=== PATIENT | male | born 1980 | race Caucasian/White ===

== ENCOUNTER 2017-01-29 17:35 | Emergency (ER) | payer BC ==
[2017-01-29 17:57] VITALS: BP 142/103
[2017-01-29] MEDS ORDERED: Acetaminophen/HYDROcodone 325-10 MG Tab PO ONE (18:26)
[2017-01-29] MEDS ORDERED: Take Home: Acetaminophen/Codeine 300 MG/30 MG, 5 Tab Pack PO ONE (18:38)
--- NOTE | 2017-01-29 22:00 | ER ---
Date of Service: 01/29/2017 SUBJECTIVE: Lance presents to the emergency room with complaints of pain to his left lateral leg. The patient states that he had a calf pen door come loose and strike him in the area of the lateral distal upper leg. He states that he was able to bear weight but with increased discomfort. He also does have some discomfort as well to the knee. PAST MEDICAL HISTORY: 1. ADHD. 2. Diabetes mellitus. 3. Depression. 4. Anxiety. 5. Dyslipidemia. 6. Hypertension. 7. History of opiate misuse. MEDICATIONS: 1. Adderall. 2. Farxiga. 3. Lipitor. 4. Metoprolol tartrate. 5. Trulicity. 6. Celexa. ALLERGIES: Metformin. REVIEW OF SYSTEMS: Denies any numbness or tingling distal to the area of injury. Denies any injury other than what is isolated to the left distal thigh area. PHYSICAL EXAMINATION: General: The patient is a 37-year-old male patient, in no acute distress. Vital Signs: Blood pressure is 142/103, pulse rate is 106, temperature is 35.3, respiratory rate 18, O2 saturations 96%. Skin: Warm, pink, and dry. Musculoskeletal: The patient does have tenderness and edema to the lateral aspect of his left thigh area. There is a large hematoma in this area. He has no crepitus noted to the knee. His drawer test is negative. Does have some increased discomfort with varus and valgus manipulation of the lower leg. Neurovascular: Circulation, sensation, and motor function all within normal limits in the distal portion of the extremity. RADIOGRAPHIC DATA: Radiographs of the patient's femur including knee were obtained. There was no evidence of any acute fracture or dislocation. ASSESSMENT: Contusion with hematoma to left distal thigh. PLAN: The patient will be discharged. Tylenol and ibuprofen for discomfort. Cecil wrap was applied. He was given Lortab 5/325 here in the emergency room. Also, did give him a 5-pack of Tylenol No. 3 with instructions to take 1 every 4- 6 hours as needed for pain. He should also take ibuprofen 600 mg every 6 hours, use the Cecil wrap for compression. Return to the emergency room if the pain is unrelenting or follow up in the clinic if things are not gradually improving. All questions were answered. MWK: 01/29/2017 19:39:09 MODL: 01/29/2017 21:51:15 /[id number]
== END 2017-01-29 19:00 | disposition home or self-care (01) ==
LOC: VM.ED 17:35
DX: S70.12XA Contusion of left thigh, initial encounter (principal); E11.9 Type 2 diabetes mellitus without complications; F41.9 Anxiety disorder, unspecified; F32.9 Major depressive disorder, single episode, unspecified; I10 Essential (primary) hypertension; F90.9 Attention-deficit hyperactivity disorder, unspecified type; Z88.8 Allergy status to other drugs, medicaments and biological substances; W22.8XXA Striking against or struck by other objects, initial encounter
CPT/HCPCS: 73552; 99283; A9270

== ENCOUNTER 2020-09-25 16:02 | Emergency (ER) | payer BC ==
[2020-09-25] MEDS ORDERED: Take Home: Sulfamethoxazole/Trimethoprim 800-160 MG Tab, 2 Tab Pack PO ONE (16:22)
[2020-09-25] MEDS ORDERED: Sulfamethoxazole/Trimethoprim 800-160 MG Tab PO ONE (16:23)
--- NOTE | 2020-09-25 23:32 | EDM.PDOC ---
ED HPI GENERAL MEDICAL PROBLEM - General Chief Complaint: Upper Extremity Injury/Pain Stated Complaint: POSSIBLE CELULITIS IN THUMB Time Seen by Provider: 09/25/20 16:15 Source of Information: Reports: Patient History Limitations: Reports: No Limitations - History of Present Illness INITIAL COMMENTS - FREE TEXT/NARRATIVE: Pt. states that he stuck himself in the medial portion of his R thumb last evening. He states that he had normal ROM to the extremity, but woke up with redness and swelling to the thumb. Denies any fever or chills. No numbness/tingling to the distal portion of the extremity. Onset: Today Location: Reports: Upper Extremity, Right Left Finger-Thumb Pain Score (Numeric/FACES): 4 - Related Data Allergies Allergy/AdvReac Type Severity Reaction Status Date / Time metformin Allergy Cough Verified 01/29/17 17:47 Home Meds: Home Meds Citalopram [Celexa] 20 mg PO DAILY 01/29/17 [History] Dapagliflozin Propanediol [Farxiga] 10 mg PO DAILY 01/29/17 [History] Dextroamphetamine/Amphetamine [Adderall 20 mg Tablet] 20 mg PO DAILY 01/29/17 [History] Dulaglutide [Trulicity] 1.5 mg SQ ASDIRECTED 01/29/17 [History] Losartan [Cozaar] 50 mg PO DAILY 01/29/17 [History] Metoprolol Tartrate 100 mg PO DAILY 01/29/17 [History] atorvaSTATin [Lipitor] 20 mg PO BEDTIME 01/29/17 [History] Citalopram Hydrobromide [Celexa] 20 mg PO DAILY 03/26/19 [History] Dextroamphetamine/Amphetamine [Adderall 20 mg Tablet] 20 mg PO BID 03/26/19 [History] Dulaglutide [Trulicity] 1.5 mg SQ WEEKLY 03/26/19 [History] Insulin Glarg,Human.Rec.Analog [Lantus Solostar] 60 unit SQ BEDTIME 03/26/19 [History] atorvaSTATin [Lipitor] 20 mg PO BEDTIME 03/26/19 [History] Past Medical History - Past Health History Medical/Surgical History: Denies Medical/Surgical History Cardiovascular History: Reports: High Cholesterol, Hypertension Psychiatric History: Reports: ADHD, Depression Endocrine/Metabolic History: Reports: Diabetes, Type II - Past Surgical History Musculoskeletal Surgical History: Reports: Nerve Relocation, Other (See Below) Other Musculoskeletal Surgeries/Procedures:: fusion T6-7 Social & Family History - Caffeine Use Caffeine Use: Reports: Soda - Recreational Drug Use Recreational Drug Use: No Review of Systems - Review of Systems Review Of Systems: See Below Constitutional: Reports: No Symptoms. Denies: Chills, Diaphoresis, Fever, Weakness Respiratory: Reports: No Symptoms Cardiovascular: Reports: No Symptoms GI/Abdominal: Reports: No Symptoms Musculoskeletal: Reports: Other (see HPI) Neurological: Reports: No Symptoms ED EXAM, GENERAL - Physical Exam Exam: See Below Exam Limited By: No Limitations General Appearance: Alert, WD/WN, No Apparent Distress Extremities: Other (Erythema/mild edema to R thumb. ROM is intact and not affected. approx. 1 cm laceration to base of thumb. No pain with manipulation of the MCP in IP joint of the hand, but does have some discomfort on palpation to the entirety of thumb.) Course - Vital Signs Last Recorded V/S: Last Vital Signs Temp 36.3 C 09/25/20 16:10 Pulse 86 09/25/20 16:10 Resp 16 09/25/20 16:10 BP 168/116 H 09/25/20 16:10 Pulse Ox 96 09/25/20 16:10 - Orders/Labs/Meds Meds: Medications Discontinued Medications Generic Name Dose Route Start Last Admin Trade Name Freq PRN Reason Stop Dose Admin Trimethoprim/Sulfamethoxazole 1 packet 09/25/20 16:22 09/25/20 16:25 Take Home: Sulfameth/Trimet 800-160mg, 2 Pack PO 09/25/20 16:23 1 packet ONETIME ONE Administration Trimethoprim/Sulfamethoxazole 1 tab 09/25/20 16:23 09/25/20 16:25 Septra Ds PO 09/25/20 16:24 1 tab ONETIME ONE Administration Departure - Departure Time of Disposition: 16:50 Disposition: Home, Self-Care 01 Clinical Impression: Cellulitis - Discharge Information Instructions: Sulfamethoxazole; Trimethoprim, SMX-TMP tablets, Probiotics Referrals: Stacey Patino NP [Primary Care Provider] - Forms: ED Department Discharge Additional Instructions: Bactrim DS 1 twice daily for 10 days Tylenol and ibuprofen as needed for discomfort. Return to ER/Clinic if not gradually improving. Sepsis Event Note (ED) - Evaluation Sepsis Screening Result: No Definite Risk - Focused Exam Vital Signs: Vital Signs Temp Pulse Resp BP Pulse Ox 09/25/20 16:10 36.3 C 86 16 168/116 H 96 - Problem List Review Problem List Initiated/Reviewed/Updated: Yes - Assessment/Plan Plan: Bactrim DS 1 twice daily for 10 days Tylenol and ibuprofen as needed for discomfort. Return to ER/Clinic if not gradually improving.
== END 2020-09-25 16:30 | disposition home or self-care (01) ==
LOC: VM.ED 16:02
DX: L03.011 Cellulitis of right finger (principal); E78.00 Pure hypercholesterolemia, unspecified; I10 Essential (primary) hypertension; F90.9 Attention-deficit hyperactivity disorder, unspecified type; F32.9 Major depressive disorder, single episode, unspecified; E11.9 Type 2 diabetes mellitus without complications; Z79.4 Long term (current) use of insulin; Z79.899 Other long term (current) drug therapy; Z88.8 Allergy status to other drugs, medicaments and biological substances
CPT/HCPCS: 99283; A9270

== ENCOUNTER 2022-06-14 20:17 | Emergency (ER) | payer BC ==
[2022-06-14] MEDS ORDERED: Sulfamethoxazole/Trimethoprim 800-160 MG Tab PO ONE (20:28)
== END 2022-06-14 20:25 | disposition home or self-care (01) ==
LOC: VM.ED 20:17
DX: L08.9 Local infection of the skin and subcutaneous tissue, unspecified (principal); E78.00 Pure hypercholesterolemia, unspecified; I10 Essential (primary) hypertension; E11.9 Type 2 diabetes mellitus without complications; Z88.8 Allergy status to other drugs, medicaments and biological substances; Z79.899 Other long term (current) drug therapy
CPT/HCPCS: 99283; A9270-GY

== ENCOUNTER 2024-12-03 16:08 | Emergency (ER) | payer BC ==
[2024-12-03] MEDS ORDERED: Sodium Chloride 0.9% 10 ML Syringe FLUSH PRN (16:20)
[2024-12-03 16:29] LABS: BASOPHILS PERCENT AUTO 0.2 % (0.2-1.2); EOSINOPHILS ABSOLUTE AUTO 0.1 x10^3/uL (0.0-0.5); EOSINOPHILS PERCENT AUTO 0.8 % (0.0-4.0); HEMATOCRIT 46.4 % (40.0-52.0); HEMOGLOBIN 16.7 g/dL (14.0-18.0); IMMATURE GRAN ABSOLUTE AUTO 0.01 x10^3/uL (0.00-0.07); LYMPHOCYTES ABSOLUTE AUTO 3.5 x10^3/uL (1.0-4.8); LYMPHOCYTES PERCENT AUTO 36.2 % (25.0-50.0); MEAN CORPUSCULAR VOLUME 83.3 fL (78.0-93.0); MONOCYTES ABSOLUTE AUTO 0.9 x10^3/uL (0.0-0.8); MONOCYTES PERCENT AUTO 9.6 % (2.0-11.0); NEUTROPHILS ABSOLUTE AUTO 5.1 x10^3/uL (1.8-7.7); NEUTROPHILS PERCENT AUTO 53.1 % (50.0-80.0); PLATELET COUNT,PLT 327 x10^3/uL (130-400); RED BLOOD CELL COUNT 5.57 x10^6/uL (4.5-6.0); WHITE BLOOD CELL COUNT,WBC 9.6 x10^3/uL (4.0-10.0)
[2024-12-03 16:42] LABS: A/G RATIO 1.15; ALANINE AMINOTRANSFERASE,ALT 34 U/L (16-63); ALBUMIN 3.9 g/dL (3.4-5.0); ALKALINE PHOSPHATASE 128 U/L (46-116); ANION GAP 13.4 mmol/L (5-15); ASPARTATE AMNIOTRANSFERASE,AST 29 U/L (15-37); BLOOD UREA NITROGEN,BUN 12 mg/dL (7-18); CALCIUM 9.3 mg/dL (8.5-10.1); CARBON DIOXIDE,CO2 27 mmol/L (21-32); CHLORIDE,CL 96 mmol/L (98-107); ESTIMATED GFR 94 mL/min (>=60); GLUCOSE RANDOM 106 mg/dL (70-99); POTASSIUM,K 4.4 mmol/L (3.5-5.1); PROTEIN TOTAL,TP 7.3 g/dL (6.4-8.2); SODIUM,NA 132 mmol/L (136-145)
[2024-12-03] MEDS: Iopamidol 612 MG/ML 100 ML Bottle IVPUSH ONE (17:21)
[2024-12-03] MEDS: Take Home: Acetaminophen/Codeine 300 MG/30 MG, 5 Tab Pack PO ONE (18:17)
== END 2024-12-03 18:21 | disposition home or self-care (01) ==
LOC: VM.ED 16:08 → SUPCPDRO 16:08 → VM.ED 18:21
DX: S20.212A Contusion of left front wall of thorax, initial encounter (principal); I10 Essential (primary) hypertension; E78.00 Pure hypercholesterolemia, unspecified; E11.9 Type 2 diabetes mellitus without complications; Z79.899 Other long term (current) drug therapy; Z88.8 Allergy status to other drugs, medicaments and biological substances; W22.8XXA Striking against or struck by other objects, initial encounter
CPT/HCPCS: 71260; 74177; 80053; 85025; 99283; 99284; A9270-GY; Q9967